=== PATIENT | male | born 1985 | race Two or more races ===

== ENCOUNTER 2019-06-17 09:06 | Emergency (ER) | payer MEDICAID ==
[~2019-06-17] VITALS: Ht 182.9 cm; Wt 84.1 kg
[2019-06-17 09:18] VITALS: BP 141/83
[2019-06-17] MEDS ORDERED: ALBU8HFA IH (09:23)
[2019-06-17] MEDS ORDERED: AMLO10TA7 PO (09:23)
[2019-06-17] MEDS ORDERED: PHEN-460 PO (09:23)
[2019-06-17] MEDS ORDERED: BUSP5TAB20 PO (09:23)
[2019-06-17] MEDS ORDERED: PB/HYOSCY/ATR/SCOP/LIDO/MAALOX 55 ML BOTTLE PO ONE (09:30)
== END 2019-06-17 10:14 | disposition home or self-care (01) ==
LOC: EMS 09:10
DX: T18.9XXA Foreign body of alimentary tract, part unspecified, initial encounter (principal); J45.909 Unspecified asthma, uncomplicated; I10 Essential (primary) hypertension; F32.9 Major depressive disorder, single episode, unspecified; Z88.8 Allergy status to other drugs, medicaments and biological substances; W45.8XXA Other foreign body or object entering through skin, initial encounter; Y93.89 Activity, other specified; Y92.89 Other specified places as the place of occurrence of the external cause; Y99.8 Other external cause status

== ENCOUNTER 2019-09-29 16:06 | Emergency (ER) | payer MEDICAID ==
[~2019-09-29] VITALS: Ht 185.4 cm; Wt 79.5 kg
[~2019-09-29 16:06] MED LIST: ALBU8HFA IH; AMLO-258 PO; BUSP5TAB20 PO; PHEN-460 PO
[2019-09-29] MEDS ORDERED: ALBUTEROL SULFATE HFA 90 MCG/PUFF 8 GM INHALER IH ONE (17:15)
[2019-09-29 17:16] VITALS: BP 135/57
== END 2019-09-29 17:25 | disposition home or self-care (01) ==
LOC: EMS 16:06
DX: J45.909 Unspecified asthma, uncomplicated (principal); F32.9 Major depressive disorder, single episode, unspecified; I10 Essential (primary) hypertension; Z88.8 Allergy status to other drugs, medicaments and biological substances
CPT/HCPCS: 94640; J3535

== ENCOUNTER 2019-10-14 05:47 | Emergency (ER) | payer MEDICAID ==
[~2019-10-14] VITALS: Ht 175.3 cm; Wt 75.5 kg
[2019-10-14] MEDS ORDERED: ALBU8HFA IH (06:07)
[2019-10-14] MEDS ORDERED: AMLO2.5T29 PO (06:07)
[2019-10-14] MEDS ORDERED: PHEN100O5 PO (06:07)
[2019-10-14] MEDS ORDERED: ALBUTEROL SULFATE HFA 90 MCG/PUFF 8 GM INHALER IH ONE (06:15)
[2019-10-14] MEDS ORDERED: ALBUTEROL SULFATE 5 MG/ML 20 ML NEB SOLN [BULK] NEB ONE ×2 (06:15→09:00)
[2019-10-14] MEDS ORDERED: DEXAMETHASONE SOD PHOS 4 MG/ML 5 ML VIAL IM ONE (06:15)
[2019-10-14 11:20] VITALS: BP 128/80
== END 2019-10-14 11:33 | disposition home or self-care (01) ==
LOC: EMS 05:47
DX: J45.901 Unspecified asthma with (acute) exacerbation (principal); F32.9 Major depressive disorder, single episode, unspecified; I10 Essential (primary) hypertension; F17.210 Nicotine dependence, cigarettes, uncomplicated; Z88.8 Allergy status to other drugs, medicaments and biological substances
CPT/HCPCS: 71045; 94640; 94644; 96372; 99285; J1100; J3535; J7611

== ENCOUNTER 2019-11-13 22:32 | Emergency (ER) | payer MEDICAID ==
[~2019-11-13] VITALS: Ht 182.9 cm; Wt 79.5 kg
[~2019-11-13 22:32] MED LIST changes: -AMLO-258 PO; +AMLO2.5T29 PO; -BUSP5TAB20 PO; -PHEN-460 PO; +PHEN100O5 PO
[2019-11-14] MEDS ORDERED: ALBUTEROL SULFATE HFA 90 MCG/PUFF 8 GM INHALER IH ONE (00:45)
[2019-11-14] MEDS ORDERED: MethylPREDNISolone SOD SUCC 125 MG/2 ML VIAL IVP ONE (00:45)
[2019-11-14 01:46] VITALS: BP 129/87
== END 2019-11-14 01:48 | disposition home or self-care (01) ==
LOC: EMS 22:34
DX: J45.901 Unspecified asthma with (acute) exacerbation (principal); F17.210 Nicotine dependence, cigarettes, uncomplicated
CPT/HCPCS: 71045; 87426; 93005; 94640 ×2; 96374; 99285; J2930; J3535

== ENCOUNTER 2020-01-06 13:18 | Emergency (ER) | payer MEDICAID ==
[~2020-01-06] VITALS: Ht 182.9 cm; Wt 79.5 kg
[2020-01-06] MEDS ORDERED: MethylPREDNISolone SOD SUCC 125 MG/2 ML VIAL IVP ONE (14:00)
[2020-01-06] MEDS ORDERED: ALBUTEROL SULFATE 5 MG/ML 20 ML NEB SOLN [BULK] NEB ONE (14:00)
[2020-01-06] MEDS ORDERED: ALBU8HFA IH (14:02)
[2020-01-06 16:00] VITALS: BP 138/74
== END 2020-01-06 16:28 | disposition home or self-care (01) ==
LOC: EMS 13:18
DX: J45.909 Unspecified asthma, uncomplicated (principal); I10 Essential (primary) hypertension; F32.9 Major depressive disorder, single episode, unspecified; F17.210 Nicotine dependence, cigarettes, uncomplicated; Z88.8 Allergy status to other drugs, medicaments and biological substances
CPT/HCPCS: 94644; 96374; 99285; J2930

== ENCOUNTER 2020-01-16 16:09 | Emergency (ER) | payer MEDICAID ==
[~2020-01-16] VITALS: Ht 182.9 cm; Wt 75.0 kg
[2020-01-16] MEDS ORDERED: EPINEPHrine 1:1,000 [1 MG/ML] AMP SQ ONE (17:30)
[2020-01-16] MEDS ORDERED: PredniSONE 20 MG TABLET PO ONE (17:30)
[2020-01-16] MEDS ORDERED: ALBUTEROL SULFATE 5 MG/ML 20 ML NEB SOLN [BULK] NEB ONE (17:30)
[2020-01-16] MEDS ORDERED: IPRATROPIUM BROMIDE 0.5 MG/2.5 ML NEB SOLUTION NEB ONE (17:30)
[2020-01-16 18:23] VITALS: BP 128/84
== END 2020-01-16 20:37 | disposition home or self-care (01) ==
LOC: EMS 16:14
DX: J45.901 Unspecified asthma with (acute) exacerbation (principal); F17.210 Nicotine dependence, cigarettes, uncomplicated; F32.9 Major depressive disorder, single episode, unspecified; I10 Essential (primary) hypertension; Z88.8 Allergy status to other drugs, medicaments and biological substances; Z79.899 Other long term (current) drug therapy
CPT/HCPCS: 94640; 96372; 99285; 99406; J0171; J7512; 94644